=== PATIENT | male | born 1955 | race Caucasian/White ===

== ENCOUNTER 2016-07-09 11:19 | Emergency (ER) | payer BC ==
[~2016-07-09] VITALS: Ht 180.3 cm; Wt 105.0 kg
[2016-07-09] MEDS ORDERED: VALS160T2 PO (11:24)
[2016-07-09] MEDS ORDERED: SODIUM CHLORIDE 0.9% 1,000 ML IV ONE (11:38)
[2016-07-09] MEDS ORDERED: MORPHINE SULFATE 4 MG/ML CPJ (NOT FOR IM USE) IV STA (11:38)
[2016-07-09] MEDS ORDERED: ONDANSETRON HCL 4MG/2ML VIAL IV STA (11:38)
[2016-07-09 12:11] LABS: BASOPHILS % 0.2 % (0.0-2.0); EOSINOPHILS % 0.1 % (0.0-5.0); HEMATOCRIT. 39.6 % (42.0-52.0); HEMOGLOBIN. 13.7 g/dL (14.0-18.0); LYMPHOCYTES % 13.2 % (20.0-50.0); MEAN CORPUSCULAR HEMOGLOBIN 32.6 pg (28.0-32.0); MEAN CORPUSCULAR HGB CONC 34.7 g/dL (31.0-37.0); MEAN PLATELET VOLUME 7.9 fl (7.4-10.4); MONOCYTES % 7.8 % (2.0-8.0); NEUTROPHILS % 78.7 % (40.0-76.0); PLATELET 186 x1000/uL (130-400); RED BLOOD CELL COUNT 4.22 mill/uL (4.7-6.1); RED CELL DISTRIBUTION WIDTH 13.3 % (11.6-14.6); WHITE BLOOD COUNT 9.8 x1000/uL (4.5-11.0)
[2016-07-09 12:17] LABS: PROTHROMBIN TIME 10.7 sec
[2016-07-09 12:25] LABS: ALANINE AMINOTRANSFERASE 38 IU/L (13-61); ALBUMIN 3.9 g/dL (3.4-5.0); ANION GAP 15; CALCIUM 8.4 mg/dL (8.5-10.1); CARBON DIOXIDE 26 mEq/L (21-32); CHLORIDE 102 mEq/L (98-107); INDEX HEMOLYSI 1 (1-3); INDEX ICTERIC 1 (1-4); INDEX LIPEMIC 1 (1-3); UREA NITROGEN BLOOD 16 mg/dL (7-21); eGFR > 60 mL/min (>60)
[2016-07-09 12:27] LABS: NT PRO B-TYPE NATRIURETIC PEP 23 pg/mL (5-125); TROPONIN I < 0.02 ng/mL (0.00-0.04)
[2016-07-09] MEDS ORDERED: HYDROCODONE/ACETAMINOPHEN 5/325MG TABLET PO PRN (16:00)
[2016-07-09] MEDS ORDERED: CLONIDINE 0.1MG TABLET PO PRN (16:00)
[2016-07-09] MEDS ORDERED: ONDANSETRON HCL 4MG/2ML VIAL IV PRN (16:00)
[2016-07-09] MEDS ORDERED: IPRATROPIUM/ALBUTEROL 0.5-3(2.5)MG/3ML NEB INH PRN (16:00)
[2016-07-09] MEDS ORDERED: ACETAMINOPHEN 325MG TABLET PO PRN (16:00)
[2016-07-09] MEDS ORDERED: DIPHENHYDRAMINE 50MG/ML VIAL IV PRN (16:00)
[2016-07-09 17:31] VITALS: BP 157/100
== END 2016-07-09 17:50 | disposition left against medical advice (07) ==
LOC: ER 11:37
DX: R07.89 Other chest pain (principal); R06.02 Shortness of breath; I10 Essential (primary) hypertension; I77.810 Thoracic aortic ectasia
CPT/HCPCS: 36415; 71010; 71275; 80053; 83880; 84484; 85025; 85610; 93005; 96360; 96361; 99285; G0482; J7030; Z7610; J2270; J2405